=== PATIENT | female | born 2000 | race Caucasian/White ===

== ENCOUNTER 2022-10-04 11:39 | Emergency (ER) | payer OTHER ==
[~2022-10-04] VITALS: Ht 175.3 cm; Wt 65.9 kg
[2022-10-04] MEDS ORDERED: PERTUSS(ACELL),DIPH,TET VAC/PF 0.5 ML SYRINGE IM. ONE (12:45)
[2022-10-04] MEDS ORDERED: BACITRACIN 0.9 GM PACKET OINTMENT TP ONE (12:45)
[2022-10-04] MEDS: ACETAMINOPHEN 500 MG TABLET PO ONE ×2 (12:46→12:54)
[2022-10-04 13:12] VITALS: BP 123/67
== END 2022-10-04 13:46 | disposition home or self-care (01) ==
LOC: EMS 11:47
DX: T24.202A Burn of second degree of unspecified site of left lower limb, except ankle and foot, initial encounter (principal); T31.0 Burns involving less than 10% of body surface; F17.210 Nicotine dependence, cigarettes, uncomplicated; Z98.890 Other specified postprocedural states; X08.8XXA Exposure to other specified smoke, fire and flames, initial encounter; Y93.89 Activity, other specified; Y92.89 Other specified places as the place of occurrence of the external cause; Y99.8 Other external cause status
CPT/HCPCS: 16020; 90471; 90715; 99283